=== PATIENT | female | born 1970 | race Two or more races ===

== ENCOUNTER 2021-07-07 07:08 | Emergency (ER) | payer SELFPAY ==
[~2021-07-07] VITALS: Ht 152.4 cm; Wt 81.6 kg
[2021-07-07 09:21] VITALS: BP 145/78
[2021-07-07] MEDS ORDERED: AMOX500T86 PO (09:55)
== END 2021-07-07 10:18 | disposition home or self-care (01) ==
LOC: ER 07:08
DX: H00.011 Hordeolum externum right upper eyelid (principal)